=== PATIENT | female | born 1955 | race Caucasian/White ===

== ENCOUNTER 2017-06-22 05:07 | Day surgery (SDC) | payer BC ==
[~2017-06-22] VITALS: Ht 167.6 cm; Wt 81.6 kg
[~2017-06-22 05:07] MED LIST: ASPIR-LOW81 MG PO; ATORVASTATIN CA40 MG PO; Atarax,Vistaril PO; BASAGLAR K100 UNIT/1 SC; CILOXAN 0.100 DROP/5 BOTH EYES; CINNAMON500 MG PO; Coumadin,Jantoven PO; DEPAKOTE ER500 MG PO; Feosol PO; HUMALOG100 UNIT/2 SC; IBUPROFEN200 M1 PO; JANUMET 50/11 TABLET PO; JARDIANCE10 MG PO; Janumet 50/1,000 PO; LEVEMIR FL100 UNIT/1 SC; LEVEMIR FL100 UNITS/ SC; LEXAPRO10 MG PO; LEXAPRO20 MG PO; LISINOPRIL10 MG PO; MELOXICAM15 MG PO; METFORMIN HCL1000 MG PO; MIRAPEX0.5 MG PO; MULTIVITAMIN1 EAC2 PO; NEURONTIN100 MG PO; NEURONTIN800 MG PO; NOVOLOG PE100 UNITS/ SC; Percocet 5/325,Endoc PO; Protonix PO; TYLENOL ARTHRI650 MG PO; ULTRAM50 MG PO; VYTORIN 10/81 TABLET PO; Vytorin 10/80 PO; ZANTAC75 M1 PO; ZESTRIL10 MG PO; Zestril,Prinivil PO
[2017-06-22 05:56] VITALS: BP 159/73
[2017-06-22 09:07] VITALS: BP 117/62
[2017-06-22 10:07] VITALS: BP 135/60
== END 2017-06-22 10:12 | disposition home or self-care (01) ==
LOC: SDC 05:07
PROVIDERS: Obstetrics & Gynecology Obstetrics
PROC: 0UBC7ZX Excision of Cervix, Via Natural or Artificial Opening, Diagnostic (ICD-10-PCS; principal; 2017-06-22)
DX: D06.7 Carcinoma in situ of other parts of cervix (principal); I10 Essential (primary) hypertension; E78.5 Hyperlipidemia, unspecified; K22.70 Barrett's esophagus without dysplasia; I65.29 Occlusion and stenosis of unspecified carotid artery; F41.8 Other specified anxiety disorders; E11.40 Type 2 diabetes mellitus with diabetic neuropathy, unspecified; K21.9 Gastro-esophageal reflux disease without esophagitis; Z88.0 Allergy status to penicillin; Z79.4 Long term (current) use of insulin; Z80.0 Family history of malignant neoplasm of digestive organs; Z80.49 Family history of malignant neoplasm of other genital organs; Z87.891 Personal history of nicotine dependence
CPT/HCPCS: 82948; 88305; 88307; J1885; J2250; J2405; J3010